=== PATIENT | male | born 1965 | race Caucasian/White ===

== ENCOUNTER 2019-05-24 10:25 | Emergency (ER) | payer BC ==
--- OUTSIDE RECORDS SUMMARY | 2019-05-24 10:38 | XMS REPORT ---
:1965 Author Organization [facility] Care Team Providers Name Role Phone Joselyn Leavitt Primary Care Physician Unavailable Allergies, Adverse Reactions, Alerts Allergy Code CodeSystem Reaction Severity Criticality Status Start Substance Date Moderate Medications Medication Medication Medication Start Stop Route Dose Status Fill Code CodeSystem Date Date Instructions sertraline 074323 RxNorm 2019-02 oral 50 mg active for 30 -25 tablet day(s) Problems Problem Name Code CodeSystem Alternate Alternate Start End Status Narrative Code CodeSystem Date Date Reaction to [id number] SNOMED-CT 2018-04 Active severe - stress, unspecified Relevant diagnostic tests/laboratory data Narrative No Information Procedures Procedure Code CodeSystem Target Date of Status Service Device Device Device Name Site Procedure Delivery Code Name UID Location Psychotherap [id number] SNOMED-CT () 2018-09-09 complete Mental y, 45 04 d Health- minutes with [address], [id number] Psychotherap [id number] SNOMED-CT () 2018-10-19 complete Mental y, 45 04 d Health- minutes with [address], [id number] Psychiatric [id number] SNOMED-CT () 2019-03-01 complete Mental diagnostic 85 d Health- evaluation [address], [id number] SNOMED-CT () 2019-02-02 complete Mental d Health- [address], [id number] SNOMED-CT () 2019-01-25 complete Mental d Health- [address], [id number] SNOMED-CT () 2018-08-13 complete Mental d Health- [address], [id number] SNOMED-CT () 2018-08-18 [facility] [address] [place], [place], [id number] Encounters/Encounter Diagnoses Encounter Encounter Diagnosis Diagnosis Diagnosis Date of Service Name Code Code Name CodeSystem Diagnosis Delivery [place] Initial 606[address] SNOMED-CT 2019-03-01 [facility] [address] [facility]/ [place], [place], Services [id number] Vital Signs No Information Social History Element Description Description Start End Code CodeSystem AdditionalInfo Date Date SexAssignedAtBirth Male 1965-1 M AdministrativeGender 0-26 Hospital Discharge Instructions Reason For Referral Medical Equipment FDA Assessments
[2019-05-24 10:42] VITALS: BP 151/94
--- NOTE | 2019-05-24 11:07 | UC ---
Laceration HPI - HPI Summary HPI Summary: Patient is a 54yo male presenting with left index finger laceration that happened this morning while using a table saw for a home project. States it bled immediately but stopped after about an hour of pressure. Denies pain but notes slight throb. Denies decreased ROM. States tetanus UTD, last booster 2018. - History Of Current Complaint Chief Complaint: UCLaceration Stated Complaint: L FINGER INJURY Hx Obtained From: Patient Pain Intensity: 0 - Allergies/Home Medications Allergies/Adverse Reactions: Allergies Allergy/AdvReac Type Severity Reaction Status Date / Time No Known Allergies Allergy Verified 05/24/19 10:42 Home Medications: Home Medications Sertraline* [Zoloft*] 1 tab PO DAILY 05/24/19 [History Confirmed 05/24/19] PMH/Surg Hx/FS Hx/Imm Hx - Surgical History Surgical History: Yes Surgery Procedure, Year, and Place: REMOVAL OF SQUAMOUS CELL CA - Family History Known Family History: Positive: Non-Contributory - Social History Alcohol Use: None Substance Use Type: Marijuana Substance Use Comment - Amount & Last Used: occasional Smoking Status (MU): Never Smoked Tobacco Review of Systems All Other Systems Reviewed And Are Negative: Yes Constitutional: Positive: Negative Skin: Positive: Other - laceration L index finger Respiratory: Positive: Negative Cardiovascular: Positive: Negative Musculoskeletal: Negative: Arthralgia, Decreased ROM, Edema Neurological/Mental Status: Positive: Negative. Negative: Paresthesia, Numbness Physical Exam - Summary Physical Exam Summary: Vital Signs Reviewed: Yes A+Ox3, no distress Eyes: Conjunctiva Clear ENT: Hearing grossly normal neck: supple Respiratory: Positive: No respiratory distress, No accessory muscle use Cardiovascular: skin color reflect adequate perfusion Musculoskeletal Exam: ~1.2cm laceration noted on palmar aspect of distal phalanx of left index finger, no pain with palpation of L index finger, full flexion and extension of PIP and DIP joints. no edema, no ecchymosis, sensation grossly intact, cap refill <2sec Neurological: Positive: Alert, ambulatory without difficulty Psychological: Positive: age appropriate behavior Skin: Positive: see above Vital Signs: Initial Vital Signs Temp 98.3 F 05/24/19 10:39 Pulse 67 05/24/19 10:39 Resp 18 05/24/19 10:39 BP 151/94 05/24/19 10:39 Pulse Ox 98 05/24/19 10:39 Laceration Repair - Laceration Repair 1 Description: Linear Laceration Size After Repair: Length (cm) - 1.2cm, Width (mm) - 4mm Anesthesia Used: 1.0% Lido Cleansing Completed Via Routine Prep: Yes Irrigation With Pressure Irrigation Device: Yes Closure Material: Sutures - 3 sutures Closure Method: Single Layer Suture Of: Skin Suture Type: Prolene - 4-0 Laceration Course/Dx - Course/Dx Course Of Treatment: Laceration was irrigated and I repaired with 3 sutures. Patient tolerated procedure well. He received dressing and finger splint. Educated on suture and wound care. Educated on s/s of infection and instructed to return if any red flags occur. Instructed to return or follow up with pcp for suture removal in 7- 10 days. Patient voiced understanding and agreed with treatment plan. - Diagnosis Provider Diagnosis: Laceration of index finger of left hand without complication Discharge ED - Sign-Out/Discharge Documenting (check all that apply): Patient Departure All imaging exams completed and their final reports reviewed: No Studies - Discharge Plan Condition: Stable Disposition: HOME Patient Education Materials: Finger Laceration (ED) Referrals: Kevin Damian MD [Primary Care Provider] - If Needed Additional Instructions: You had 3 stitches placed in your finger today. Keep your stitches clean and dry for the first 48 hours. After that you may gently wash with soap and warm water daily. change dressings as needed and wear the finger splint to prevent the stitches from coming apart. Your stitches will not absorb. Return in 7-10 days to have your stitches removed. You may take over the counter pain medications as directed for pain relief. Return or go to the emergency department if you notice any redness, warmth, swelling, fluid drainage, fever, or nausea and vomiting. - Billing Disposition and Condition Condition: STABLE Disposition: Home
[2019-05-24] MEDS ORDERED: Lidocaine 1% MPF ** 5 ML VIAL INJ ONE (11:26)
== END 2019-05-24 12:04 | disposition home or self-care (01) ==
LOC: UCEAST 10:25
DX: S61.211A Laceration without foreign body of left index finger without damage to nail, initial encounter (principal); W31.2XXA Contact with powered woodworking and forming machines, initial encounter; Y92.9 Unspecified place or not applicable
CPT/HCPCS: 12001; 99211; G0463